=== PATIENT | female | born 1935 | race Caucasian/White ===

== ENCOUNTER → 2016-09-19 | Outpatient (CLI) | payer OTHER, MEDICAID ==
[~2016-09-19] MED LIST: ACET-1757 PO; ALBU1.25 NEB; ALBU8.5H5 INH; AMLO5TAB2 PO; ASPI325T80 PO; AZIT250T PO; CEFD300C37 PO; FURO20TA3 PO; GUAI237S4 PO; LEVO750T26 PO; LISI-170 PO; LOVA40TA2 PO; LOVA40TA65 PO; METO50TA82; METO50TA82 PO; MONT10TA6 PO; OMEP-110 PO
== END | disposition home or self-care (01) ==
LOC: CFH 07:55
PROVIDERS: ATTEND Internal Medicine
DX: J90 Pleural effusion, not elsewhere classified (principal); J98.11 Atelectasis; R91.1 Solitary pulmonary nodule
CPT/HCPCS: 71250

== ENCOUNTER 2016-11-15 09:59 | Day surgery (SDC) | payer OTHER, MEDICAID ==
[2016-11-14 12:12] VITALS: BP 107/63
[2016-11-14 12:41] LABS: BLOOD UREA NITROGEN 18 mg/dL (7-18)
[~2016-11-15] VITALS: Ht 157.5 cm; Wt 81.8 kg
[~2016-11-15 09:59] MED LIST changes: +AMLO10TA2 PO; +APIX5TAB PO; +FLUT1AER PO; +FURO-92 PO; +LISI40TA PO
[2016-11-15] MEDS ORDERED: SODIUM CHLORIDE 0.9% 1,000 ML IV SCH (10:30)
[2016-11-15] MEDS ORDERED: PROPOFOL 10 MG/ML, 20ML ONE (12:33)
== END 2016-11-15 14:00 ==
LOC: CACL 09:59
PROVIDERS: ATTEND Internal Medicine Cardiovascular Disease
DX: I48.91 Unspecified atrial fibrillation (principal); I07.1 Rheumatic tricuspid insufficiency; I34.0 Nonrheumatic mitral (valve) insufficiency; E78.5 Hyperlipidemia, unspecified; J44.9 Chronic obstructive pulmonary disease, unspecified; I10 Essential (primary) hypertension; Z87.891 Personal history of nicotine dependence; Z88.1 Allergy status to other antibiotic agents; Z88.8 Allergy status to other drugs, medicaments and biological substances
CPT/HCPCS: 36415; 80048; 92960; 93005; 93312; 93325; J2704

== ENCOUNTER 2016-12-18 18:52 | Emergency (ER) | payer OTHER, MEDICAID ==
[~2016-12-18] VITALS: Ht 157.5 cm; Wt 84.4 kg
[2016-12-18 20:14] LABS: HEMATOCRIT 32.1 % (34.6-47.8); HEMOGLOBIN 10.6 g/dL (11.7-16.4); WHITE BLOOD COUNT 7.4 x10^3/uL (3.4-10)
[2016-12-18 20:17] LABS: ASPARTATE AMINO TRANSFERASE 16 U/L (15-37); BLOOD UREA NITROGEN 20 mg/dL (7-18)
[2016-12-18 20:23] LABS: IS PT STATUS REG ER OR PRE ER? YES
[2016-12-18] MEDS ORDERED: SOTA80TA PO (20:37)
[2016-12-18 23:39] LABS: CYTOLOGY BODY FLUID RECD INTO PATHOLOGY; CYTOLOGY BODY FLUID SOURCE PLEURAL FLUID
[2016-12-18] MEDS ORDERED: ALBUTEROL/IPRATROPIUM 2.5MG/0.5MG, 3 ML ONE (23:51)
[2016-12-19] MEDS ORDERED: ALBUTEROL SULFATE 2.5 MG/3 ML NPPB ONE
[2016-12-19 01:48] VITALS: BP 123/59
== END 2016-12-19 01:50 | disposition home or self-care (01) ==
LOC: ED 19:46
DX: J90 Pleural effusion, not elsewhere classified (principal); R06.00 Dyspnea, unspecified; I10 Essential (primary) hypertension; E11.9 Type 2 diabetes mellitus without complications; J44.9 Chronic obstructive pulmonary disease, unspecified; K21.9 Gastro-esophageal reflux disease without esophagitis; Z87.891 Personal history of nicotine dependence
CPT/HCPCS: 36415; 71010; 71020; 80053; 82945; 83615; 83880; 84157; 84484; 85025; 85610; 85730; 88112; 88305; 89051; 93005; 94640; 99285; J7613

== ENCOUNTER → 2017-02-07 | Outpatient (CLI) | payer OTHER, MEDICAID ==
[~2017-02-07] MED LIST changes: +DOCU-131 PO; +DOXY100T10 PO; +FERR325T16 PO; +LISI-167 PO; +ONDA4TAB7 PO; +OXYC5TAB3 PO; +SOTA80TA PO
== END | disposition home or self-care (01) ==
LOC: CFH 09:35
PROVIDERS: ATTEND Internal Medicine Cardiovascular Disease
DX: J90 Pleural effusion, not elsewhere classified (principal); I48.91 Unspecified atrial fibrillation; D64.9 Anemia, unspecified; I10 Essential (primary) hypertension; Z90.49 Acquired absence of other specified parts of digestive tract
CPT/HCPCS: 71020

== ENCOUNTER 2017-02-20 05:50 | Day surgery (SDC) | payer OTHER, MEDICAID ==
[~2017-02-20] VITALS: Ht 157.5 cm; Wt 79.9 kg
[~2017-02-20 05:50] MED LIST changes: +FERR324T8 PO
[2017-02-20 06:58] LABS: HEMATOCRIT 25.4 % (34.6-47.8); HEMOGLOBIN 8.1 g/dL (11.7-16.4); WHITE BLOOD COUNT 8.7 x10^3/uL (3.4-10)
[2017-02-20] MEDS ORDERED: LACTATED RINGERS 1,000 ML IV SCH (07:05)
[2017-02-20 07:06] VITALS: BP 91/52
[2017-02-20 08:12] LABS: BLOOD UREA NITROGEN 9 mg/dL (7-18)
[2017-02-20 08:21] LABS: ASPARTATE AMINO TRANSFERASE 16 U/L (15-37); FERRITIN 60.7 ng/mL (8-252); TOTAL IRON BINDING CAPACITY 293 mcg/dL (250-450)
[2017-02-20 09:05] VITALS: BP 84/46
[2017-02-20 09:11] VITALS: BP 88/51
[2017-02-20 11:11] VITALS: BP 92/56
[2017-02-20] MEDS ORDERED: PROPOFOL 10 MG/ML, 50ML ONE (13:09)
[2017-02-20] MEDS ORDERED: PROPOFOL 10 MG/ML, 20ML ONE (13:09)
[2017-02-23 13:52] LABS: ANA SCREEN NEGATIVE (Negative)
== END 2017-02-20 15:10 ==
LOC: OUT 05:50
PROVIDERS: ATTEND Internal Medicine
DX: K62.1 Rectal polyp (principal); J44.9 Chronic obstructive pulmonary disease, unspecified; I10 Essential (primary) hypertension; E78.5 Hyperlipidemia, unspecified; Z85.3 Personal history of malignant neoplasm of breast
CPT/HCPCS: 36415; 44369; 45385; 80053; 82728; 83540; 83550; 84443; 85025; 85045; 86038; 86300; 86850; 86900; 86923; 88305; 93005; J2704; J7120; P9016

== ENCOUNTER 2017-02-22 13:22 | Inpatient (IN) | payer OTHER, MEDICAID ==
[~2017-02-22] VITALS: Ht 157.5 cm; Wt 76.0 kg
[2017-02-22 14:27] LABS: HEMATOCRIT 28.5 % (34.6-47.8); HEMOGLOBIN 9.2 g/dL (11.7-16.4); WHITE BLOOD COUNT 10.6 x10^3/uL (3.4-10)
[2017-02-22 14:35] LABS: BLOOD UREA NITROGEN 17 mg/dL (7-18)
[2017-02-22 15:41] LABS: IS PT STATUS REG ER OR PRE ER? YES
[2017-02-22] MEDS ORDERED: FUROSEMIDE 40 MG/4 ML IV ONE (17:00)
[2017-02-22] MEDS ORDERED: PIPERACILLIN/TAZO/PMX 3.375GM 50 ML IVPB ONE (17:00)
[2017-02-22] MEDS ORDERED: FUROSEMIDE 40 MG/4 ML ONE (17:37)
[2017-02-22] MEDS ORDERED: FUROSEMIDE 20 MG/2 ML IV ONE (18:30)
[2017-02-22] MEDS ORDERED: VANCOMYCIN PER PHARMACY MC PRN (18:30)
[2017-02-22] MEDS ORDERED: VANCOMYCIN PMX 1GM/200ML 200 ML IV ONE (18:30)
[2017-02-22] MEDS: FUROSEMIDE 40 MG/4 ML IV SCH (18:49)
[2017-02-22] MEDS ORDERED: PHARMACOKINETIC MONITORING MC PRN (20:00)
[2017-02-22 20:14] VITALS: BP 126/69
[2017-02-22] MEDS: SOTALOL 80MG TABLET PO SCH (20:46)
[2017-02-22] MEDS: MONTELUKAST 10 MG TABLET PO SCH (20:46)
[2017-02-22] MEDS: PIPERACILLIN/TAZO/PMX 3.375GM 50 ML IV SCH (20:47)
[2017-02-22] MEDS ORDERED: APIXABAN 5 MG TABLET PO SCH (21:00)
[2017-02-22] MEDS: VANCOMYCIN 1,500 MG in SODIUM CHLORIDE 0.9% 250 ML IV SCH (22:39)
[2017-02-23 02:11] VITALS: BP 114/63
[2017-02-23] MEDS: PIPERACILLIN/TAZO/PMX 3.375GM 50 ML IV SCH ×4 (03:13→20:58)
[2017-02-23] MEDS: ALBUTEROL SULFATE 2.5 MG/3 ML NPPB PRN ×2 (03:56→06:49)
[2017-02-23 08:00] VITALS: BP 118/67
[2017-02-23] MEDS: FERROUS GLUCONATE 324 MG TABLET PO SCH ×2 (08:00→17:00)
[2017-02-23] MEDS: FUROSEMIDE 40 MG/4 ML IV SCH ×2 (08:52→17:02)
[2017-02-23] MEDS: LISINOPRIL 10 MG TABLET PO SCH (08:53)
[2017-02-23] MEDS: OMEPRAZOLE 20 MG CAPSULE.DR PO SCH (08:53)
[2017-02-23] MEDS: SOTALOL 80MG TABLET PO SCH ×2 (08:53→20:58)
[2017-02-23] MEDS: ALBUTEROL SULFATE 2.5 MG/3 ML NPPB SCH ×3 (09:00→20:20)
[2017-02-23] MEDS ORDERED: FUROSEMIDE 40 MG TABLET PO SCH (09:00)
[2017-02-23] MEDS: FLUTICASONE/VILANTEROL 100-25MCG/INH INH SCH (11:04)
[2017-02-23 13:48] VITALS: BP 103/59
[2017-02-23 18:31] VITALS: BP 102/58
[2017-02-23] MEDS: MONTELUKAST 10 MG TABLET PO SCH (20:58)
[2017-02-23] MEDS: VANCOMYCIN 1,500 MG in SODIUM CHLORIDE 0.9% 250 ML IV SCH (21:51)
[2017-02-24 01:17] VITALS: BP 123/77
[2017-02-24] MEDS: PIPERACILLIN/TAZO/PMX 3.375GM 50 ML IV SCH ×4 (03:16→21:51)
[2017-02-24 05:29] LABS: HEMATOCRIT 25.5 % (34.6-47.8); HEMOGLOBIN 8.1 g/dL (11.7-16.4)
[2017-02-24 05:39] LABS: BLOOD UREA NITROGEN 15 mg/dL (7-18)
[2017-02-24 07:40] VITALS: BP 116/65
[2017-02-24] MEDS: OMEPRAZOLE 20 MG CAPSULE.DR PO SCH (07:54)
[2017-02-24] MEDS: FERROUS GLUCONATE 324 MG TABLET PO SCH ×2 (07:55→17:00)
[2017-02-24] MEDS: FUROSEMIDE 40 MG/4 ML IV SCH ×2 (07:55→17:09)
[2017-02-24] MEDS: FLUTICASONE/VILANTEROL 100-25MCG/INH INH SCH (09:46)
[2017-02-24] MEDS: LISINOPRIL 10 MG TABLET PO SCH (09:47)
[2017-02-24] MEDS: SOTALOL 80MG TABLET PO SCH ×2 (09:47→21:58)
[2017-02-24] MEDS: ALBUTEROL SULFATE 2.5 MG/3 ML NPPB SCH ×3 (10:39→20:50)
[2017-02-24 13:45] VITALS: BP 98/59
[2017-02-24 19:55] VITALS: BP 106/63
[2017-02-24] MEDS: MONTELUKAST 10 MG TABLET PO SCH (21:57)
[2017-02-24] MEDS: VANCOMYCIN 1,500 MG in SODIUM CHLORIDE 0.9% 250 ML IV SCH (22:52)
[2017-02-25 01:21] VITALS: BP 116/54
[2017-02-25] MEDS: PIPERACILLIN/TAZO/PMX 3.375GM 50 ML IV SCH ×3 (04:00→18:15)
[2017-02-25] MEDS: ALBUTEROL SULFATE 2.5 MG/3 ML NPPB SCH ×4 (06:00→20:21)
[2017-02-25] MEDS: FERROUS GLUCONATE 324 MG TABLET PO SCH ×2 (08:00→17:00)
[2017-02-25 08:38] VITALS: BP 112/54
[2017-02-25] MEDS: FLUTICASONE/VILANTEROL 100-25MCG/INH INH SCH (11:52)
[2017-02-25] MEDS: LISINOPRIL 10 MG TABLET PO SCH (11:52)
[2017-02-25] MEDS: SOTALOL 80MG TABLET PO SCH ×2 (11:52→22:56)
[2017-02-25] MEDS: OMEPRAZOLE 20 MG CAPSULE.DR PO SCH (11:52)
[2017-02-25] MEDS: FUROSEMIDE 40 MG TABLET PO SCH ×2 (13:12→18:15)
[2017-02-25 14:30] VITALS: BP 109/54
[2017-02-25 20:00] VITALS: BP 122/72
[2017-02-25] MEDS: MONTELUKAST 10 MG TABLET PO SCH (22:56)
[2017-02-25] MEDS: VANCOMYCIN 1,700 MG in SODIUM CHLORIDE 0.9% 250 ML IV SCH (22:56)
[2017-02-26 00:29] VITALS: BP 116/69
[2017-02-26] MEDS: PIPERACILLIN/TAZO/PMX 3.375GM 50 ML IV SCH ×4 (00:43→18:47)
[2017-02-26] MEDS: ALBUTEROL SULFATE 2.5 MG/3 ML NPPB SCH ×4 (07:45→19:43)
[2017-02-26] MEDS: FERROUS GLUCONATE 324 MG TABLET PO SCH ×2 (08:00→17:00)
[2017-02-26] MEDS: FUROSEMIDE 40 MG TABLET PO SCH ×2 (08:00→17:00)
[2017-02-26] MEDS ORDERED: CATHFLO-ALTEPLASE 2 MG/2 ML CATHFLUSH ONE (08:30)
[2017-02-26] MEDS: FLUTICASONE/VILANTEROL 100-25MCG/INH INH SCH (09:00)
[2017-02-26 09:53] VITALS: BP 130/57
[2017-02-26] MEDS: SOTALOL 80MG TABLET PO SCH ×2 (10:19→21:20)
[2017-02-26] MEDS: LISINOPRIL 10 MG TABLET PO SCH (10:19)
[2017-02-26] MEDS: OMEPRAZOLE 20 MG CAPSULE.DR PO SCH (10:19)
[2017-02-26] MEDS ORDERED: BISACODYL 10 MG SUPP PR PRN (10:30)
[2017-02-26 14:00] VITALS: BP 128/60
[2017-02-26 15:50] VITALS: BP 134/60
[2017-02-26 18:32] VITALS: BP 128/53
[2017-02-26 21:00] VITALS: BP 116/50
[2017-02-26] MEDS: MONTELUKAST 10 MG TABLET PO SCH (21:19)
[2017-02-26] MEDS: VANCOMYCIN 1,700 MG in SODIUM CHLORIDE 0.9% 250 ML IV SCH (22:45)
[2017-02-27] MEDS: PIPERACILLIN/TAZO/PMX 3.375GM 50 ML IV SCH ×4 (01:06→20:23)
[2017-02-27 03:05] VITALS: BP 100/39
[2017-02-27 06:55] VITALS: BP 144/63
[2017-02-27] MEDS: ALBUTEROL SULFATE 2.5 MG/3 ML NPPB SCH ×4 (07:50→20:15)
[2017-02-27] MEDS: FERROUS GLUCONATE 324 MG TABLET PO SCH ×2 (08:00→17:00)
[2017-02-27] MEDS: FLUTICASONE/VILANTEROL 100-25MCG/INH INH SCH (09:20)
[2017-02-27] MEDS: SOTALOL 80MG TABLET PO SCH ×2 (09:21→20:24)
[2017-02-27] MEDS: OMEPRAZOLE 20 MG CAPSULE.DR PO SCH (09:21)
[2017-02-27] MEDS: FUROSEMIDE 40 MG TABLET PO SCH ×2 (09:21→17:41)
[2017-02-27] MEDS: LISINOPRIL 10 MG TABLET PO SCH (09:21)
[2017-02-27] MEDS ORDERED: ONDANSETRON 2MG/ML, 2ML IVPush PRN (10:30)
[2017-02-27 12:51] VITALS: BP 119/69
[2017-02-27 19:19] VITALS: BP 119/46
[2017-02-27] MEDS: MONTELUKAST 10 MG TABLET PO SCH (20:24)
[2017-02-27] MEDS: VANCOMYCIN 1,700 MG in SODIUM CHLORIDE 0.9% 250 ML IV SCH (22:15)
[2017-02-28 02:30] VITALS: BP 106/48
[2017-02-28] MEDS: PIPERACILLIN/TAZO/PMX 3.375GM 50 ML IV SCH ×3 (02:46→14:30)
[2017-02-28 06:50] VITALS: BP 114/46
[2017-02-28] MEDS: ALBUTEROL SULFATE 2.5 MG/3 ML NPPB SCH ×2 (07:10→11:00)
[2017-02-28] MEDS: FERROUS GLUCONATE 324 MG TABLET PO SCH (08:00)
[2017-02-28] MEDS: OMEPRAZOLE 20 MG CAPSULE.DR PO SCH (08:31)
[2017-02-28] MEDS: SOTALOL 80MG TABLET PO SCH (08:31)
[2017-02-28] MEDS: LISINOPRIL 10 MG TABLET PO SCH (08:31)
[2017-02-28] MEDS: FLUTICASONE/VILANTEROL 100-25MCG/INH INH SCH (08:31)
[2017-02-28] MEDS: FUROSEMIDE 40 MG TABLET PO SCH (08:31)
[2017-02-28] MEDS ORDERED: SIMV20TA PO (11:54)
[2017-02-28] MEDS ORDERED: POTA20PA PO (11:54)
[2017-02-28] MEDS ORDERED: FURO40TA6 PO (11:54)
[2017-02-28 12:22] VITALS: BP 105/55
== END 2017-02-28 14:30 | disposition home or self-care (01) | DRG 291 ==
LOC: ED 14:47 → EDIP 16:58 → 4EST 18:32
PROVIDERS: ADMIT Family Medicine; ATTEND Internal Medicine
DX: I11.0 Hypertensive heart disease with heart failure (principal); I26.09 Other pulmonary embolism with acute cor pulmonale; J91.0 Malignant pleural effusion; J81.1 Chronic pulmonary edema; J96.11 Chronic respiratory failure with hypoxia; I27.20 Pulmonary hypertension, unspecified; J44.0 Chronic obstructive pulmonary disease with (acute) lower respiratory infection; I50.31 Acute diastolic (congestive) heart failure; D50.9 Iron deficiency anemia, unspecified; E11.9 Type 2 diabetes mellitus without complications; Z99.81 Dependence on supplemental oxygen; I48.91 Unspecified atrial fibrillation; E66.9 Obesity, unspecified; I35.8 Other nonrheumatic aortic valve disorders; K21.9 Gastro-esophageal reflux disease without esophagitis; Z68.30 Body mass index [BMI] 30.0-30.9, adult; E78.5 Hyperlipidemia, unspecified; I34.0 Nonrheumatic mitral (valve) insufficiency; T50.2X5A Adverse effect of carbonic-anhydrase inhibitors, benzothiadiazides and other diuretics, initial encounter; K63.5 Polyp of colon; Z66 Do not resuscitate; Z85.3 Personal history of malignant neoplasm of breast; Z87.891 Personal history of nicotine dependence; Z90.13 Acquired absence of bilateral breasts and nipples; Z90.49 Acquired absence of other specified parts of digestive tract; Z88.8 Allergy status to other drugs, medicaments and biological substances
CPT/HCPCS: 36415; 71010; 71250; 80048; 80202; 83605; 83735; 83880; 84100; 84484; 85025; 87040; 93005; 93306; 94640; 96374; J1940; J2405; J2543; J2997; J3370; J7613; J7050

== ENCOUNTER → 2018-01-09 | Outpatient (CLI) | payer OTHER, MEDICAID ==
[~2018-01-09] MED LIST changes: -AMLO10TA2 PO; +AMLO10TA6 PO; -AMLO5TAB2 PO; +AMLO5TAB7 PO; +ASCO-96 PO; +BENZ200C48 PO; +CHOL400C PO; +CYAN250013 PO; +FLUT1AER INH; +FURO40TA6 PO; +LACT1CAP35 PO; +LETR2.5T PO; +LOVA-41 PO; -LOVA40TA65 PO; +POTA20PA31 PO; +SIMV20TA PO
== END | disposition home or self-care (01) ==
LOC: RAD 09:13
PROVIDERS: ATTEND Internal Medicine
DX: J90 Pleural effusion, not elsewhere classified (principal); I31.3 Pericardial effusion (noninflammatory); I25.10 Atherosclerotic heart disease of native coronary artery without angina pectoris; I70.0 Atherosclerosis of aorta; K76.89 Other specified diseases of liver; C50.919 Malignant neoplasm of unspecified site of unspecified female breast; D50.9 Iron deficiency anemia, unspecified
CPT/HCPCS: 71250; 76700

== ENCOUNTER → 2018-01-11 | Outpatient (CLI) | payer OTHER, MEDICAID | END | disposition home or self-care (01) | LOC: PETCFH 11:07 | PROVIDERS: ATTEND Internal Medicine | DX: C50.919 Malignant neoplasm of unspecified site of unspecified female breast (principal); D50.9 Iron deficiency anemia, unspecified | CPT/HCPCS: 78306; A9503 ==

== ENCOUNTER 2018-02-15 11:49 | Emergency (ER) | payer OTHER, MEDICAID ==
[~2018-02-15] VITALS: Ht 157.5 cm; Wt 84.1 kg
[~2018-02-15 11:49] MED LIST changes: +AMLO-150 PO; -AMLO5TAB7 PO
[2018-02-15 12:00] VITALS: BP 123/53
== END 2018-02-15 13:43 | disposition home or self-care (01) ==
LOC: ED 13:09
DX: M79.661 Pain in right lower leg (principal); K21.9 Gastro-esophageal reflux disease without esophagitis; J44.9 Chronic obstructive pulmonary disease, unspecified; E11.9 Type 2 diabetes mellitus without complications; I10 Essential (primary) hypertension
CPT/HCPCS: 99284

== ENCOUNTER → 2018-03-28 | Outpatient (CLI) | payer MEDICARE, MEDICAID | END | disposition home or self-care (01) | LOC: RAD 13:37 | PROVIDERS: ATTEND Internal Medicine | DX: M51.36 Other intervertebral disc degeneration, lumbar region (principal); M48.061 Spinal stenosis, lumbar region without neurogenic claudication; M51.26 Other intervertebral disc displacement, lumbar region | CPT/HCPCS: 72148 ==

== ENCOUNTER 2018-09-25 09:36 | Outpatient (CLI) | payer MEDICARE, MEDICAID ==
[~2018-09-25 09:36] MED LIST changes: -AMLO10TA6 PO; +AMLO10TA8 PO
== END 2018-09-25 23:59 | disposition home or self-care (01) ==
LOC: CFH 09:36
PROVIDERS: ATTEND Licensed Practical Nurse
DX: M85.89 Other specified disorders of bone density and structure, multiple sites (principal); N95.8 Other specified menopausal and perimenopausal disorders
CPT/HCPCS: 77080

== ENCOUNTER 2018-10-24 06:54 | Day surgery (SDC) | payer MEDICAID, MEDICARE ==
[~2018-10-24] VITALS: Ht 156.2 cm; Wt 81.2 kg
[2018-10-24 07:49] VITALS: BP 115/73
== END 2018-10-24 12:35 | disposition home or self-care (01) ==
LOC: OUT 06:54
PROVIDERS: ATTEND Internal Medicine
DX: D64.9 Anemia, unspecified (principal); C18.9 Malignant neoplasm of colon, unspecified; K63.3 Ulcer of intestine; K29.70 Gastritis, unspecified, without bleeding; K55.20 Angiodysplasia of colon without hemorrhage; K64.8 Other hemorrhoids; I48.91 Unspecified atrial fibrillation; I48.92 Unspecified atrial flutter; K44.9 Diaphragmatic hernia without obstruction or gangrene; Z88.8 Allergy status to other drugs, medicaments and biological substances; Z85.3 Personal history of malignant neoplasm of breast
CPT/HCPCS: 44369; 45380; 71260; 74177; 88305; 93005; J2704; J7120; Q9967; 88341; 88342

== ENCOUNTER 2018-11-08 06:43 | Inpatient (IN) | payer MEDICARE, MEDICAID ==
[2018-11-05 12:09] VITALS: BP 107/69
[2018-11-05 12:21] LABS: BASOPHILS # (AUTO) 0.03 x10^3/uL (0-0.1); BASOPHILS % (AUTO) 0 % (0-1); EOSINOPHILS # (AUTO) 0.27 x10^3/uL (0-0.4); EOSINOPHILS % (AUTO) 3 % (1-7); LYMPHOCYTES # (AUTO) 1.11 x10^3/uL (1-3.4); LYMPHOCYTES % (AUTO) 12 % (22-44); MD NO; MEAN CORPUSCULAR HEMOGLOBIN 26.6 pg (27.0-34.8); MEAN CORPUSCULAR HGB CONC 32.1 g/dL (32.4-35.8); MEAN CORPUSCULAR VOLUME 82.9 fL (80-100); MEAN PLATELET VOLUME 8.3 fL (7.4-10.4); MONOCYTES # (AUTO) 1.11 x10^3/uL (0.2-0.8); MONOCYTES % (AUTO) 12 % (2-9); NEUTROPHILS # (AUTO) 6.58 x10^3/uL (1.8-6.8); NEUTROPHILS % (AUTO) 72 % (42-75); PLATELET COUNT 328 x10^3/uL (130-400); RED BLOOD COUNT 4.44 x10^6/uL (3.82-5.3); RED CELL DISTRIBUTION WIDTH 16.2 % (9.6-15.2)
[2018-11-05 12:28] LABS: ALBUMIN 3.5 g/dL (3.4-5.0); ANION GAP 8 mmol/L (5-15); CHLORIDE 109 mmol/L (98-107)
[2018-11-05 12:39] LABS: ALANINE AMINOTRANSFERASE 20 U/L (12-78); ALKALINE PHOSPHATASE 77 U/L (45-117); BILIRUBIN,TOTAL 0.4 mg/dL (0.2-1.0); CALCIUM 8.6 mg/dL (8.5-10.1); CREATININE 1.03 mg/dL (0.55-1.02); TOTAL PROTEIN 6.9 g/dL (6.4-8.2)
[~2018-11-08] VITALS: Ht 157.5 cm; Wt 81.0 kg
[~2018-11-08 06:43] MED LIST changes: +ASCO100019 PO; +ASCO10004 PO; +CHOL500045 PO; +COLE1TAB2 PO; +CYAN50008 PO; +DIPH1TAB6 PO; +FURO-93 PO; +IRON28TA4 PO; +LACT1CAP37 PO; +POTA10TA5 PO; +[UNRECOGNIZED DRUG - OTHER] PO; +[UNRECOGNIZED DRUG - OTHER] PO
[2018-11-08] MEDS ORDERED: BUPIVACAINE/PF 0.5% ONE (06:50)
[2018-11-08] MEDS ORDERED: EPINEPHRINE 1 MG/ML, 1ML ONE (06:50)
[2018-11-08] MEDS ORDERED: LACTATED RINGERS 1,000 ML IV SCH ×2 (07:33→12:30)
[2018-11-08 07:55] VITALS: BP 118/74
[2018-11-08] MEDS ORDERED: FENTANYL PF 250 MCG/5ML ONE (08:23)
[2018-11-08] MEDS ORDERED: PHENYLEPHRINE 10 MG/ML ONE (08:28)
[2018-11-08] MEDS ORDERED: ONDANSETRON ODT 8 MG PO PRN (09:00)
[2018-11-08] MEDS ORDERED: ONDANSETRON 2MG/ML, 2ML IV PRN ×2 (09:00→12:30)
[2018-11-08] MEDS ORDERED: OXYcodone 5 MG/5 ML ORAL.SOL UDC PO PRN (09:00)
[2018-11-08] MEDS ORDERED: PROMETHAZINE 25 MG/ML, 1ML IV PRN (09:00)
[2018-11-08] MEDS ORDERED: FENTANYL PF 100 MCG/2ML IV PRN (09:00)
[2018-11-08] MEDS ORDERED: ACETAMINOPHEN 325 MG TABLET PO PRN (09:00)
[2018-11-08] MEDS ORDERED: HYDROmorphone 2 MG/ML, 1ML IVPush PRN (09:00)
[2018-11-08] MEDS ORDERED: GLYCOPYRROLATE 0.2MG/1ML, 5ML ONE (09:43)
[2018-11-08] MEDS ORDERED: PROPOFOL 10 MG/ML, 20ML ONE (09:43)
[2018-11-08] MEDS ORDERED: SUCCINYLCHOLINE 20 MG/ML, 10ML ONE (09:43)
[2018-11-08] MEDS ORDERED: DEXAMETHASONE 4 MG/ML, 1ML ONE (09:43)
[2018-11-08] MEDS ORDERED: LIDOCAINE-MPF 2% ,5ML ONE (09:43)
[2018-11-08] MEDS ORDERED: ONDANSETRON 2MG/ML, 2ML ONE (09:43)
[2018-11-08] MEDS ORDERED: NEOSTIGMINE 1 MG/ML, 10ML ONE (09:43)
[2018-11-08] MEDS ORDERED: ROCURONIUM 10MG/ML,5ML ONE (09:43)
[2018-11-08] MEDS ORDERED: CEFAZOLIN 1,000 MG ONE (09:43)
[2018-11-08] MEDS ORDERED: SUGAMMADEX 200 MG/2 ML IVPush ONE (09:50)
[2018-11-08] MEDS ORDERED: KETOROLAC 30 MG/1 ML ONE (10:38)
[2018-11-08] MEDS ORDERED: ACETAMINOPHEN 325 MG TABLET ONE (10:39)
[2018-11-08] MEDS ORDERED: OXYcodone 5 MG/5 ML ORAL.SOL UDC ONE (10:39)
[2018-11-08] MEDS ORDERED: FENTANYL PF 100 MCG/2ML ONE (10:57)
[2018-11-08] MEDS ORDERED: KETOROLAC 30 MG/1 ML IVPush ONE (11:00)
[2018-11-08] MEDS ORDERED: DEXAMETHASONE 4 MG/ML, 1ML IVPush PRN (12:30)
[2018-11-08] MEDS ORDERED: CALCIUM CARBONATE 500 MG TAB.CHEW PO PRN (12:30)
[2018-11-08] MEDS ORDERED: OXYcodone IR 5MG TABLET PO PRN (12:30)
[2018-11-08] MEDS ORDERED: TRAZODONE 50MG TABLET PO PRN (12:30)
[2018-11-08] MEDS ORDERED: SCOPOLAMINE PATCH, 1.5MG PATCH.TD72 TD PRN (12:30)
[2018-11-08] MEDS ORDERED: LORazepam 1MG TABLET PO PRN (12:30)
[2018-11-08] MEDS ORDERED: ALBUTEROL SULFATE 2.5 MG/3 ML NPPB PRN (12:30)
[2018-11-08] MEDS ORDERED: DIPHENHYDRAMINE 50 MG/ML, 1ML IVPush PRN (12:30)
[2018-11-08] MEDS ORDERED: MORPHINE SULFATE 4 MG/ML, 1ML IVPush PRN (12:30)
[2018-11-08] MEDS ORDERED: HALOPERIDOL 5 MG/ML IVPush PRN (12:30)
[2018-11-08] MEDS ORDERED: LORazepam 2 MG/ML, 1ML IVPush PRN (12:30)
[2018-11-08] MEDS ORDERED: DIPHENHYDRAMINE 25 MG CAPSULE PO PRN (12:30)
[2018-11-08 12:42] VITALS: BP 139/77
[2018-11-08] MEDS: ACETAMINOPHEN 500 MG TABLET PO SCH ×2 (17:53→23:44)
[2018-11-08] MEDS: KETOROLAC 30 MG/1 ML IVPush SCH ×2 (17:54→23:44)
[2018-11-08 19:22] VITALS: BP 112/66
[2018-11-08] MEDS: MONTELUKAST 10 MG TABLET PO SCH (19:59)
[2018-11-08] MEDS: SOTALOL 80MG TABLET PO SCH (19:59)
[2018-11-09 01:04] VITALS: BP 101/63
[2018-11-09 03:07] LABS: MEAN CORPUSCULAR HEMOGLOBIN 24.8 pg (27.0-34.8); MEAN CORPUSCULAR HGB CONC 30.1 g/dL (32.4-35.8); MEAN CORPUSCULAR VOLUME 82.3 fL (80-100); MEAN PLATELET VOLUME 8.1 fL (7.4-10.4); PLATELET COUNT 247 x10^3/uL (130-400); RED BLOOD COUNT 3.74 x10^6/uL (3.82-5.3); RED CELL DISTRIBUTION WIDTH 16.2 % (9.6-15.2)
[2018-11-09 03:17] LABS: ANION GAP 8 mmol/L (5-15); CALCIUM 8.1 mg/dL (8.5-10.1); CHLORIDE 106 mmol/L (98-107); CREATININE 1.29 mg/dL (0.55-1.02)
[2018-11-09 04:15] LABS: MD YES
[2018-11-09 04:22] LABS: ANISOCYTOSIS 1+; BAND#(MANUAL) 0.65 x10^3/uL; BANDS%(MANUAL) 6 % (0-7); LYMPH#(MANUAL) 1.53 x10^3/uL (1-3.4); LYMPHS% (MANUAL) 14 % (22-44); MONOS#(MANUAL) 0.44 x10^3/uL (0.3-2.7); MONOS% (MANUAL) 4 % (2-9); SEG#(MANUAL) 8.28 x10^3/uL (1.8-6.8); SEGS% (MANUAL) 76 % (42-75)
[2018-11-09 04:23] LABS: <PLATELET ESTIMATE> ADEQUATE; <PLT MORPHOLOGY> NORMAL PLT MORPH
[2018-11-09 04:46] VITALS: BP 103/61
[2018-11-09] MEDS: ACETAMINOPHEN 500 MG TABLET PO SCH ×3 (05:57→18:13)
[2018-11-09] MEDS: KETOROLAC 30 MG/1 ML IVPush SCH (05:57)
[2018-11-09] MEDS ORDERED: ENOXAPARIN 30 MG/0.3 ML SQ SCH (07:00)
[2018-11-09 07:49] VITALS: BP 119/84
[2018-11-09] MEDS ORDERED: ENOXAPARIN 40 MG/0.4 ML SQ SCH (09:00)
[2018-11-09] MEDS: LETROZOLE 2.5 MG TABLET PO SCH (09:00)
[2018-11-09] MEDS: ENOXAPARIN 30 MG/0.3 ML SQ SCH (09:46)
[2018-11-09] MEDS: POTASSIUM CHLORIDE 10 MEQ TABLET.ER PO SCH (09:49)
[2018-11-09] MEDS: SOTALOL 80MG TABLET PO SCH ×2 (09:50→20:57)
[2018-11-09] MEDS: LISINOPRIL 10 MG TABLET PO SCH (09:50)
[2018-11-09] MEDS: FUROSEMIDE 20 MG TABLET PO SCH (09:50)
[2018-11-09 12:47] VITALS: BP 106/66
[2018-11-09 20:11] VITALS: BP 100/65
[2018-11-09] MEDS: MONTELUKAST 10 MG TABLET PO SCH (20:57)
[2018-11-10] MEDS: ACETAMINOPHEN 500 MG TABLET PO SCH ×2 (00:08→06:18)
[2018-11-10 02:16] VITALS: BP 103/65
[2018-11-10 05:23] LABS: BASOPHILS # (AUTO) 0.05 x10^3/uL (0-0.1); BASOPHILS % (AUTO) 1 % (0-1); EOSINOPHILS # (AUTO) 0.28 x10^3/uL (0-0.4); EOSINOPHILS % (AUTO) 3 % (1-7); LYMPHOCYTES # (AUTO) 1.38 x10^3/uL (1-3.4); LYMPHOCYTES % (AUTO) 13 % (22-44); MD NO; MEAN CORPUSCULAR HEMOGLOBIN 26.8 pg (27.0-34.8); MEAN CORPUSCULAR HGB CONC 32.4 g/dL (32.4-35.8); MEAN CORPUSCULAR VOLUME 82.6 fL (80-100); MEAN PLATELET VOLUME 8.4 fL (7.4-10.4); MONOCYTES # (AUTO) 1.19 x10^3/uL (0.2-0.8); MONOCYTES % (AUTO) 11 % (2-9); NEUTROPHILS # (AUTO) 7.91 x10^3/uL (1.8-6.8); NEUTROPHILS % (AUTO) 73 % (42-75); PLATELET COUNT 273 x10^3/uL (130-400); RED CELL DISTRIBUTION WIDTH 15.7 % (9.6-15.2)
[2018-11-10 05:31] LABS: ANION GAP 6 mmol/L (5-15); CALCIUM 8.4 mg/dL (8.5-10.1); CHLORIDE 109 mmol/L (98-107)
[2018-11-10 05:33] LABS: CREATININE 0.88 mg/dL (0.55-1.02)
[2018-11-10] MEDS: LETROZOLE 2.5 MG TABLET PO SCH (07:26)
[2018-11-10 07:34] VITALS: BP 97/62
[2018-11-10] MEDS: FUROSEMIDE 20 MG TABLET PO SCH (07:44)
[2018-11-10] MEDS: LISINOPRIL 10 MG TABLET PO SCH (07:46)
[2018-11-10] MEDS: SOTALOL 80MG TABLET PO SCH (07:46)
[2018-11-10] MEDS: POTASSIUM CHLORIDE 10 MEQ TABLET.ER PO SCH (07:46)
[2018-11-10] MEDS: ENOXAPARIN 30 MG/0.3 ML SQ SCH (09:00)
== END 2018-11-10 11:30 | disposition home or self-care (01) | DRG 330 ==
LOC: ORIP 06:43 → 4NOR 11:29 → DCLOUNGE 11-10 11:20
PROVIDERS: ADMIT Colon & Rectal Surgery; ATTEND Colon & Rectal Surgery
PROC: 0DTF4ZZ Resection of Right Large Intestine, Percutaneous Endoscopic Approach (ICD-10-PCS; principal; 2018-11-08 08:30)
DX: C18.2 Malignant neoplasm of ascending colon (principal); R71.0 Precipitous drop in hematocrit; I48.91 Unspecified atrial fibrillation; I10 Essential (primary) hypertension; E66.9 Obesity, unspecified; E61.1 Iron deficiency; C50.919 Malignant neoplasm of unspecified site of unspecified female breast; Z99.81 Dependence on supplemental oxygen; Z88.8 Allergy status to other drugs, medicaments and biological substances; Z92.21 Personal history of antineoplastic chemotherapy; Z85.3 Personal history of malignant neoplasm of breast; Z79.82 Long term (current) use of aspirin; Z90.10 Acquired absence of unspecified breast and nipple; Z80.9 Family history of malignant neoplasm, unspecified; Z82.49 Family history of ischemic heart disease and other diseases of the circulatory system; Z83.3 Family history of diabetes mellitus; Z87.891 Personal history of nicotine dependence; Z68.32 Body mass index [BMI] 32.0-32.9, adult
CPT/HCPCS: 36415; 80048; 80053; 83735; 85025; 86850; 86900; 88307; 93005; G0378; J0171; J0690; J1100; J1650; J1885; J2405; J2704; J2710; J3010; J0330; J2370; J7120

== ENCOUNTER 2019-04-11 12:01 | Emergency (ER) | payer MEDICARE, MEDICAID ==
[~2019-04-11] VITALS: Ht 154.9 cm; Wt 76.7 kg
[~2019-04-11 12:01] MED LIST changes: -ACET-1757 PO; +ACET-2065 PO; +BRAN1000 PO; -DOXY100T10 PO; +DOXY100T23 PO; +LOPE-114 PO
--- NOTE | 2019-04-11 12:36 | NUR ---
TECHNICAL DESIGNER- CORE PER GUERRERO [place]
[2019-04-11 13:24] LABS: MEAN CORPUSCULAR HEMOGLOBIN 27.6 pg (27.0-34.8); MEAN CORPUSCULAR HGB CONC 32.4 g/dL (32.4-35.8); MEAN PLATELET VOLUME 8.8 fL (7.4-10.4); PLATELET COUNT 242 x10^3/uL (130-400); RED BLOOD COUNT 4.55 x10^6/uL (3.82-5.3); RED CELL DISTRIBUTION WIDTH 18.1 % (9.6-15.2)
[2019-04-11 13:33] LABS: ALBUMIN 3.9 g/dL (3.4-5.0); ANION GAP 5 mmol/L (5-15); CALCIUM 9.1 mg/dL (8.5-10.1); CHLORIDE 106 mmol/L (98-107); CREATININE 0.85 mg/dL (0.55-1.02)
[2019-04-11 13:50] LABS: BASOPHILS # (AUTO) 0.03 x10^3/uL (0-0.1); BASOPHILS % (AUTO) 0 % (0-1); EOSINOPHILS # (AUTO) 0.19 x10^3/uL (0-0.4); EOSINOPHILS % (AUTO) 2 % (1-7); LYMPHOCYTES # (AUTO) 1.77 x10^3/uL (1-3.4); LYMPHOCYTES % (AUTO) 18 % (22-44); MD SCAN; MONOCYTES # (AUTO) 1.46 x10^3/uL (0.2-0.8); MONOCYTES % (AUTO) 14 % (2-9); NEUTROPHILS # (AUTO) 6.67 x10^3/uL (1.8-6.8); NEUTROPHILS % (AUTO) 66 % (42-75)
[2019-04-11 16:20] VITALS: BP 139/64
[2019-04-11] MEDS ORDERED: IBUPROFEN 200 MG TABLET ONE (19:17)
--- NOTE | 2019-04-11 19:20 | NUR ---
pt provided ice pack and motrin, per valorie [place]
[2019-04-11] MEDS ORDERED: IBUPROFEN 200 MG TABLET PO ONE (19:30)
== END 2019-04-11 19:33 | disposition home or self-care (01) ==
LOC: ED 19:25
DX: L03.116 Cellulitis of left lower limb (principal); I10 Essential (primary) hypertension; E11.9 Type 2 diabetes mellitus without complications; K21.9 Gastro-esophageal reflux disease without esophagitis; J44.0 Chronic obstructive pulmonary disease with (acute) lower respiratory infection; Z87.891 Personal history of nicotine dependence
CPT/HCPCS: 36415; 80048; 82040; 85025; 99284

== ENCOUNTER → 2019-04-23 | Outpatient (CLI) | payer MEDICARE, MEDICAID ==
[~2019-04-23] MED LIST changes: -LETR2.5T PO; +LETR2.5T3 PO
== END | disposition home or self-care (01) ==
LOC: CFH 14:34
PROVIDERS: ATTEND Internal Medicine Cardiovascular Disease
DX: I08.3 Combined rheumatic disorders of mitral, aortic and tricuspid valves (principal); I11.0 Hypertensive heart disease with heart failure; I50.33 Acute on chronic diastolic (congestive) heart failure; I48.0 Paroxysmal atrial fibrillation; E11.9 Type 2 diabetes mellitus without complications; J44.9 Chronic obstructive pulmonary disease, unspecified; Z85.038 Personal history of other malignant neoplasm of large intestine; Z85.3 Personal history of malignant neoplasm of breast
CPT/HCPCS: 93306

== ENCOUNTER → 2019-05-01 | Outpatient (CLI) | payer MEDICARE, MEDICAID | END | disposition home or self-care (01) | LOC: CVU 10:25 | PROVIDERS: ATTEND Nurse Practitioner Family | DX: J44.9 Chronic obstructive pulmonary disease, unspecified (principal); I70.8 Atherosclerosis of other arteries; I11.9 Hypertensive heart disease without heart failure; R10.31 Right lower quadrant pain; I48.91 Unspecified atrial fibrillation; Z85.118 Personal history of other malignant neoplasm of bronchus and lung | CPT/HCPCS: 71046; 93922; 93926 ==

== ENCOUNTER 2019-05-21 13:24 | Outpatient (CLI) | payer MEDICARE, MEDICAID | END 2019-05-21 23:59 | disposition home or self-care (01) | LOC: CVU 13:24 | PROVIDERS: ATTEND Nurse Practitioner Family | DX: I83.891 Varicose veins of right lower extremity with other complications (principal); R09.89 Other specified symptoms and signs involving the circulatory and respiratory systems; R06.9 Unspecified abnormalities of breathing | CPT/HCPCS: 93971 ==

== ENCOUNTER 2019-09-18 07:11 | Observation (INO) | payer MEDICARE, MEDICAID ==
[2019-09-17 11:41] LABS: BASOPHILS # (AUTO) 0.02 x10^3/uL (0-0.1); BASOPHILS % (AUTO) 0 % (0-1); EOSINOPHILS # (AUTO) 0.23 x10^3/uL (0-0.4); EOSINOPHILS % (AUTO) 3 % (1-7); LYMPHOCYTES # (AUTO) 1.22 x10^3/uL (1-3.4); LYMPHOCYTES % (AUTO) 15 % (22-44); MD NO; MEAN CORPUSCULAR HEMOGLOBIN 28.1 pg (27.0-34.8); MEAN CORPUSCULAR HGB CONC 32.3 g/dL (32.4-35.8); MEAN PLATELET VOLUME 8.7 fL (7.4-10.4); MONOCYTES # (AUTO) 1.02 x10^3/uL (0.2-0.8); MONOCYTES % (AUTO) 13 % (2-9); NEUTROPHILS # (AUTO) 5.71 x10^3/uL (1.8-6.8); NEUTROPHILS % (AUTO) 70 % (42-75); PLATELET COUNT 227 x10^3/uL (130-400); RED BLOOD COUNT 4.65 x10^6/uL (3.82-5.3); RED CELL DISTRIBUTION WIDTH 14.9 % (9.6-15.2)
[2019-09-17 11:51] LABS: ANION GAP 3 mmol/L (5-15); CALCIUM 9.3 mg/dL (8.5-10.1); CHLORIDE 108 mmol/L (98-107); CREATININE 0.87 mg/dL (0.55-1.02)
[~2019-09-18] VITALS: Ht 156.2 cm; Wt 76.5 kg
[~2019-09-18 07:11] MED LIST changes: +CIDE600C PO; +TURM500C4 PO
[2019-09-18] MEDS ORDERED: SODIUM CHLORIDE 0.9% 1,000 ML IV SCH (07:35)
[2019-09-18] MEDS ORDERED: FENTANYL PF 100 MCG/2ML ONE ×2 (08:01→08:55)
[2019-09-18] MEDS ORDERED: LIDOCAINE 2%, 20ML ONE (08:01)
[2019-09-18] MEDS ORDERED: MIDAZOLAM 1 MG/ML, 5ML ONE (08:01)
[2019-09-18] MEDS ORDERED: VANCOMYCIN 500 MG ONE (08:08)
[2019-09-18] MEDS ORDERED: VANCOMYCIN PMX 1GM/200ML 200 ML ONE (08:08)
[2019-09-18] MEDS ORDERED: HOLD MEDICATION MC PRN (09:30)
[2019-09-18] MEDS ORDERED: HYDROcodone/APAP 5/325 TABLET PO PRN (09:30)
[2019-09-18] MEDS ORDERED: ZOLPIDEM 5MG TABLET PO PRN (09:30)
[2019-09-18] MEDS ORDERED: ONDANSETRON 2MG/ML, 2ML IV PRN (09:30)
[2019-09-18] MEDS: ACETAMINOPHEN 325 MG TABLET PO PRN (14:13)
[2019-09-18 14:19] VITALS: BP 122/70
[2019-09-18] MEDS: SOTALOL 120MG TABLET PO SCH (18:04)
[2019-09-18] MEDS: FUROSEMIDE 20 MG TABLET PO SCH (20:47)
[2019-09-18 20:48] VITALS: BP 108/66
[2019-09-18] MEDS: SODIUM CHLORIDE FLUSH 10ML SYR IVF SCH (20:52)
[2019-09-18] MEDS ORDERED: LETROZOLE 2.5 MG TABLET PO SCH (21:00)
[2019-09-18] MEDS ORDERED: MONTELUKAST 10 MG TABLET PO SCH (21:00)
[2019-09-18] MEDS ORDERED: SOTALOL 80MG TABLET PO SCH (21:00)
[2019-09-19 02:59] VITALS: BP 128/78
[2019-09-19] MEDS: SOTALOL 120MG TABLET PO SCH (06:11)
[2019-09-19 07:16] VITALS: BP 137/78
[2019-09-19] MEDS: SODIUM CHLORIDE FLUSH 10ML SYR IVF SCH (08:51)
[2019-09-19] MEDS: FUROSEMIDE 20 MG TABLET PO SCH (08:51)
[2019-09-19] MEDS: ACETAMINOPHEN 325 MG TABLET PO PRN (08:58)
[2019-09-19] MEDS ORDERED: LISINOPRIL 10 MG TABLET PO SCH (09:00)
[2019-09-19] MEDS ORDERED: SOTA80TA PO (10:02)
== END 2019-09-19 12:33 | disposition home or self-care (01) ==
LOC: OUT 07:11 → 5SO 09:13 → INTOOBSV 09:13 → 5SO 09:29 → OUT 09:50 → DCLOUNGE 09-19 12:12
PROVIDERS: ADMIT Internal Medicine Clinical Cardiac Electrophysiology; ATTEND Internal Medicine Clinical Cardiac Electrophysiology
DX: I48.0 Paroxysmal atrial fibrillation (principal); I10 Essential (primary) hypertension; R09.89 Other specified symptoms and signs involving the circulatory and respiratory systems; M79.604 Pain in right leg; Z79.899 Other long term (current) drug therapy
CPT/HCPCS: 33208; 36415; 71045; 71046; 80048; 85025; 93005; 99156; 99157; C1769; C1779; C1785; C1892; C1894; G0378; J2250; J3010; J3370; J3490

== ENCOUNTER 2019-10-27 01:23 | Emergency (ER) | payer MEDICARE, MEDICAID ==
[~2019-10-27] VITALS: Ht 157.5 cm; Wt 77.0 kg
--- NOTE | 2019-10-27 01:43 | NUR ---
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 PT STATES THEY HAVENT DONE SURGERY BECAUSE THEY NEED TO "FIX SOME OTHER THINGS FIRST." PT C/O SHOOTING PAIN ACROSS LEFT FOOT TONIGHT AND PT STATES THAT RECENTLY (OVER THE PAST WEEK) PT HAS HAD NUMBESS AND TINGLING OF LOWER EXTREMITIES, IN PARTICULARLY HER FEET. STATES THE PAIN IS 7/10 AND SHOOTS UP HER LEGS MAKING WALKING DIFFICULT. PT NAD, PULSES PRESENT, WEAKER ON THE RIGHT SIDE. CALL LIGHT ON LAP. DAUGHTER AT BS PT PLACED ON SPO2/BP MONITORING GIO WOODS AT BS FOR EVAL AND POC
[2019-10-27] MEDS ORDERED: OXYcodone/APAP 5/325MG TABLET PO ONE (02:00)
[2019-10-27] MEDS ORDERED: LORazepam 1MG TABLET PO ONE (02:00)
[2019-10-27] MEDS ORDERED: APIX5TAB PO (02:12)
[2019-10-27] MEDS ORDERED: LORazepam 1MG TABLET ONE (02:15)
[2019-10-27 02:19] LABS: BASOPHILS # (AUTO) 0.03 x10^3/uL (0-0.1); BASOPHILS % (AUTO) 0 % (0-1); EOSINOPHILS % (AUTO) 2 % (1-7); LYMPHOCYTES % (AUTO) 12 % (22-44); MD NO; MEAN CORPUSCULAR HEMOGLOBIN 28.3 pg (27.0-34.8); MEAN CORPUSCULAR HGB CONC 32.4 g/dL (32.4-35.8); MEAN CORPUSCULAR VOLUME 87.3 fL (80-100); MEAN PLATELET VOLUME 8.6 fL (7.4-10.4); MONOCYTES # (AUTO) 1.03 x10^3/uL (0.2-0.8); MONOCYTES % (AUTO) 11 % (2-9); NEUTROPHILS # (AUTO) 6.88 x10^3/uL (1.8-6.8); NEUTROPHILS % (AUTO) 74 % (42-75); PLATELET COUNT 232 x10^3/uL (130-400); RED BLOOD COUNT 4.49 x10^6/uL (3.82-5.3); RED CELL DISTRIBUTION WIDTH 16.4 % (9.6-15.2)
[2019-10-27 02:28] LABS: ALANINE AMINOTRANSFERASE 24 U/L (12-78); ALBUMIN 3.8 g/dL (3.4-5.0); ANION GAP 9 mmol/L (5-15); CALCIUM 8.7 mg/dL (8.5-10.1); CHLORIDE 109 mmol/L (98-107); CREATININE 0.98 mg/dL (0.55-1.02)
[2019-10-27 02:31] LABS: ALKALINE PHOSPHATASE 93 U/L (45-117); BILIRUBIN,TOTAL 0.7 mg/dL (0.2-1.0)
--- NOTE | 2019-10-27 02:45 | NUR ---
PT RESTING IN GURNEY APPEARS COMFORTABLE, NAD, NO ACUTE CHANGE IN CONDITION, DAUGHTER AT BS. WAITING FOR ADDITIONAL TEST RESULTS. WCTM.
[2019-10-27 03:02] VITALS: BP 124/50
--- NOTE | 2019-10-27 03:03 | NUR ---
PT RESTING ON GURNEY, NAD, APPEARS COMFORTABLE, LIGHTS DIMMED FOR COMFORT, EYES CLOSED, EVEN AND UNLABORED RESPIRATIONS. WCTM. WAITING FOR ADDITIONAL TEST RESULTS.
--- NOTE | 2019-10-27 03:52 | NUR ---
Patient/DAUGHTER given discharge instructions and they have confirmed that they understand the instructions. Patient ambulatory with steady gait. DECIDED TO USE WHEELCHAIR FOR HALF DISTANCE TO THE DOOR PATIENT DID NOT WANT TO WALK FAR. PT NAD, P/W/D, VSS. DENIES ADDITIONAL NEEDS OR QUESTIONS AT THIS TIME. NO PT BELONGINGS LEFT IN ROOM AFTER DC.
== END 2019-10-27 04:12 | disposition home or self-care (01) ==
LOC: ED 03:30
DX: I70.201 Unspecified atherosclerosis of native arteries of extremities, right leg (principal); R94.31 Abnormal electrocardiogram [ECG] [EKG]; J44.9 Chronic obstructive pulmonary disease, unspecified; K21.9 Gastro-esophageal reflux disease without esophagitis; I10 Essential (primary) hypertension; E11.9 Type 2 diabetes mellitus without complications; Z87.891 Personal history of nicotine dependence; Z95.0 Presence of cardiac pacemaker
CPT/HCPCS: 36415; 80053; 85025; 93005; 99284

== ENCOUNTER 2020-02-03 06:24 | Observation (INO) | payer MEDICARE, MEDICAID ==
[~2020-02-03] VITALS: Ht 156.2 cm; Wt 80.6 kg
[~2020-02-03 06:24] MED LIST changes: +ALLO100T30 PO; +AMLO-211 PO; -AMLO10TA8 PO; +ASCO100018 PO; -ASCO10004 PO; +COLC0.6C3 PO; +METO25TA35 PO; +PRED10TA PO; +SOTA120T26 PO; +TRAM50TA2 PO
[2020-02-03 06:48] VITALS: BP 125/64
[2020-02-03] MEDS ORDERED: MULT-658 PO (07:00)
[2020-02-03] MEDS ORDERED: SODIUM CHLORIDE 0.9% 1,000 ML IV SCH (07:00)
[2020-02-03 07:23] LABS: BASOPHILS % (AUTO) 1 % (0-1); EOSINOPHILS % (AUTO) 3 % (1-7); LYMPHOCYTES % (AUTO) 14 % (22-44); MEAN CORPUSCULAR HEMOGLOBIN 26.1 pg (27.0-34.8); MEAN CORPUSCULAR HGB CONC 31.5 g/dL (32.4-35.8); MEAN PLATELET VOLUME 8.1 fL (7.4-10.4); MONOCYTES % (AUTO) 12 % (2-9); NEUTROPHILS % (AUTO) 70 % (42-75); PLATELET COUNT 285 x10^3/uL (130-400); RED BLOOD COUNT 3.55 x10^6/uL (3.82-5.3); RED CELL DISTRIBUTION WIDTH 17.1 % (9.6-15.2)
[2020-02-03 07:29] LABS: ANION GAP 6 mmol/L (5-15); CALCIUM 8.9 mg/dL (8.5-10.1); CHLORIDE 110 mmol/L (98-107); CREATININE 0.93 mg/dL (0.55-1.02)
[2020-02-03 07:31] LABS: MD NO
[2020-02-03 07:35] LABS: INTERNATIONAL NORMALIZED RATIO 0.98 (0.93-1.1); PROTHROMBIN TIME 10.4 Seconds (9.6-11.5)
[2020-02-03] MEDS ORDERED: MIDAZOLAM 1 MG/ML, 5ML ONE (08:21)
[2020-02-03] MEDS ORDERED: LIDOCAINE 2%, 20ML ONE (08:21)
[2020-02-03] MEDS ORDERED: FENTANYL PF 100 MCG/2ML ONE (08:21)
[2020-02-03 10:24] VITALS: BP 119/75
[2020-02-03 12:18] VITALS: BP 119/70
[2020-02-03 20:48] VITALS: BP 125/75
[2020-02-03] MEDS: APIXABAN 5 MG TABLET PO SCH (20:50)
[2020-02-03] MEDS ORDERED: LETROZOLE 2.5 MG TABLET PO SCH (21:00)
[2020-02-03] MEDS ORDERED: ALLOPURINOL 100 MG TABLET PO SCH (21:00)
[2020-02-03] MEDS ORDERED: MONTELUKAST 10 MG TABLET PO SCH (21:00)
[2020-02-03] MEDS ORDERED: LOPERAMIDE 1 MG/7.5 ML LIQUID PO SCH (21:00)
[2020-02-04 03:21] VITALS: BP 118/77
[2020-02-04 07:19] VITALS: BP 114/69
[2020-02-04] MEDS ORDERED: POTASSIUM CHLORIDE 10 MEQ TABLET.ER PO SCH (09:00)
[2020-02-04] MEDS ORDERED: CHOLECALCIFEROL 5,000u TAB PO SCH (09:00)
[2020-02-04] MEDS ORDERED: MULTIVITAMIN 1 TABLET PO SCH (09:00)
[2020-02-04] MEDS ORDERED: LOPERAMIDE 1 MG/7.5 ML LIQUID PO SCH (09:00)
[2020-02-04] MEDS ORDERED: LISINOPRIL 10 MG TABLET PO SCH (09:00)
[2020-02-04] MEDS ORDERED: FUROSEMIDE 20 MG TABLET PO SCH (09:00)
[2020-02-04] MEDS: APIXABAN 5 MG TABLET PO SCH (10:12)
[2020-02-04 12:23] VITALS: BP 103/64
== END 2020-02-04 13:30 | disposition home or self-care (01) ==
LOC: CACL 06:24 → ORIP 09:01 → 5SO 10:08 → DCLOUNGE 02-04 13:25
PROVIDERS: ADMIT Internal Medicine Cardiovascular Disease; ATTEND Internal Medicine Cardiovascular Disease
DX: I48.91 Unspecified atrial fibrillation (principal); I44.2 Atrioventricular block, complete; I10 Essential (primary) hypertension; Z79.899 Other long term (current) drug therapy
CPT/HCPCS: 36415; 71046; 80048; 85025; 85610; 93650; 99156; C1894; C2630; G0378; J2250; J3010; J3490

== ENCOUNTER 2020-03-30 15:35 | Inpatient (IN) | payer MEDICARE, MEDICAID, OTHER ==
[~2020-03-30] VITALS: Ht 156.2 cm; Wt 77.2 kg
[~2020-03-30 15:35] MED LIST changes: +IRON15TA3 PO; +MULT-658 PO; +PRED1TAB19 PO
[2020-03-30] MEDS ORDERED: ALLO100T30 PO (16:14)
--- NOTE | 2020-03-30 16:51 | NUR ---
Pt reports having SOB for the past week. Patient had a AV node Ablation on January,. February has 2 units of blood for a H&H of 8.5 and iron infusions were started. Had a pacemaker put in in September. Taken off eliquis 3 weeks ago for long HX of GI bleeds for 3-4 years. O2 at night because of her lung cancer, pt on 2.5 L nc at night for years. Pt has left lower lobe removed after her breast cancer metastasized to her lungs. 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 20g IV started in right AC, blood walked to lab. Pt's daughter in room. Went over plan of care from order list, agrees to plan of care. Warm blanket given.
[2020-03-30 16:58] LABS: BASOPHILS % (AUTO) 1 % (0-1); EOSINOPHILS % (AUTO) 2 % (1-7); LYMPHOCYTES % (AUTO) 11 % (22-44); MEAN CORPUSCULAR HEMOGLOBIN 26.1 pg (27.0-34.8); MEAN CORPUSCULAR HGB CONC 31.9 g/dL (32.4-35.8); MONOCYTES % (AUTO) 13 % (2-9); NEUTROPHILS % (AUTO) 73 % (42-75); PLATELET COUNT 243 x10^3/uL (130-400); RED BLOOD COUNT 3.87 x10^6/uL (3.82-5.3); RED CELL DISTRIBUTION WIDTH 17.9 % (9.6-15.2)
[2020-03-30 17:00] LABS: MD NO
[2020-03-30] MEDS ORDERED: SODIUM CHLORIDE FLUSH 10ML SYR IVF ONE (17:00)
[2020-03-30 17:12] LABS: ALBUMIN 3.3 g/dL (3.4-5.0); ANION GAP 7 mmol/L (5-15); CALCIUM 8.8 mg/dL (8.5-10.1); CHLORIDE 106 mmol/L (98-107); D-DIMER 1.08 ug/mlFEU (0.00-0.52); INTERNATIONAL NORMALIZED RATIO 1.01 (0.93-1.1); PROTHROMBIN TIME 10.7 Seconds (9.6-11.5)
[2020-03-30 17:17] LABS: CREATININE 1.58 mg/dL (0.55-1.02); TROPONIN I < 0.015 ng/mL (0.000-0.045)
--- NOTE | 2020-03-30 18:17 | NUR ---
Pt ambulated to restroom with steady gait. Pt SOB RR 45. MD Torrez at bedside.
[2020-03-30] MEDS ORDERED: methylPREDNISolone SOD SUCC 125 MG/2 ML IVPush ONE (18:30)
[2020-03-30] MEDS ORDERED: DIPHENHYDRAMINE 50 MG/ML, 1ML IVPush ONE (18:30)
[2020-03-30] MEDS ORDERED: DIPHENHYDRAMINE 50 MG/ML, 1ML ONE (18:45)
[2020-03-30] MEDS ORDERED: methylPREDNISolone SOD SUCC 125 MG/2 ML ONE (18:45)
--- NOTE | 2020-03-30 18:59 | NUR ---
REPORT FROM JAYJAY SY, PT CARE TRASNFERRED AT THIS TIME.
--- NOTE | 2020-03-30 19:48 | NUR ---
PT RESTING ON BETTINA, NAD, NO CHANGES IN CONDITION, DAUGHTER AT , WCTM. WAITING FOR CT.
--- NOTE | 2020-03-30 20:11 | NUR ---
PT IN CT AT THIS TIME, NAD.
[2020-03-30] MEDS ORDERED: OMNIPAQUE 350 MG/ML, 100ML BOTTLE ONE (20:24)
[2020-03-30] MEDS ORDERED: LOPERAMIDE 1 MG/7.5 ML LIQUID PO PRN (20:30)
[2020-03-30] MEDS ORDERED: POLYETHYLENE GLYCOL 17 GM PACKET PO PRN (20:30)
[2020-03-30] MEDS ORDERED: BISACODYL 10 MG SUPP PR PRN (20:30)
[2020-03-30] MEDS ORDERED: ONDANSETRON ODT 4 MG PO PRN (20:30)
[2020-03-30] MEDS ORDERED: ACETAMINOPHEN 325 MG TABLET PO PRN (20:30)
--- NOTE | 2020-03-30 20:39 | NUR ---
PT BACK TO ROOM, RESTING ON BETTINA, [place], APPEARS COMFORTABLE, DAUGHTER AT BS, DENIES ADDITIONAL NEEDS AT THIS TIME. WCTM. WAITING FOR CT READ
[2020-03-30] MEDS: SODIUM CHLORIDE FLUSH 10ML SYR IVF SCH (21:00)
--- NOTE | 2020-03-30 21:08 | NUR ---
PT RESTING ON GURNEY, NAD, APPEARS COMFORTABLE, PROVIDED PUDDING AND WATER FOR COMFORT, WAITING ON ADMIT BED, WCTM.
[2020-03-30] MEDS: LETROZOLE 2.5 MG TABLET PO SCH (21:46)
[2020-03-30] MEDS: MONTELUKAST 10 MG TABLET PO SCH (21:46)
--- NOTE | 2020-03-30 22:16 | NUR ---
PT PROVIDED SANDWICH FOR COMFORT, NAD, RESTING ON GURNEY, HOSPITAL BED ORDERED, DENIES ADDITIONAL NEEDS AT THIS TIME. BED IN LOWEST, CALL LIGHT ON LAP, RAILS ARE IN PLACE, WCTM. WAITING FOR ADMIT BED.
--- NOTE | 2020-03-30 23:15 | NUR ---
PT MOVED TO HOSPITAL BED, AMBULATED TO RESTROOM WITH A SMOOTH AND STEADY GAIT, RESTING ON HOSPITAL BED, NAD, DENIES ADDITIONAL NEEDS, BED IN LOWEST, RAILS ENGAGED, CALL LIGHT ON LAP, WCTM. WAITING FOR ADMIT BED.
[2020-03-30] MEDS ORDERED: FUROSEMIDE 40 MG/4 ML IV ONE (23:30)
[2020-03-30] MEDS ORDERED: FUROSEMIDE 40 MG/4 ML ONE (23:33)
--- NOTE | 2020-03-31 00:35 | NUR ---
PT PROVIDED DENTURE CUP, RESTING ON HOSPITAL BED, NAD, DENIES ADDITIONAL NEEDS, BED IN LOWEST, RAILS ENGAGED, CALL LIGHT ON LAP, WCTM. WAITING FOR ADMIT BED.
--- NOTE | 2020-03-31 01:15 | NUR ---
LATE ENTRY D/T PT CARE: PT RESTING ON HOSPITAL BED, NAD, EYES CLOSED, EVEN AND UNLABORED RESPIRATIONS, APPEARS COMFORTABLE, BED IN LOWEST, RAILS ENGAGED, CALL LIGHT ON LAP, WCTM. WAITING FOR ADMIT BED
--- NOTE | 2020-03-31 02:10 | NUR ---
LATE ENTRY D/T PT CARE: PT AMBULATED TO RESTROOM WITH A SMOOTH AND STEADY GAIT THEN BACK TO HOSPITAL BED, NAD, APPEARS COMFORTABLE, DENIES ADDITIONAL NEEDS, BED IN LOWEST, RAILS ENGAGED, CALL LIGHT ON LAP, WCTM. WAITING FOR ADMIT BED
--- NOTE | 2020-03-31 03:02 | NUR ---
PT RESTING ON HOSPITAL BED, NAD, EYES CLOSED, EVEN AND UNLABORED RESPIRATIONS, APPEARS COMFORTABLE, BED IN LOWEST, RAILS ENGAGED, CALL LIGHT ON LAP, WCTM. WAITING FOR ADMIT BED
--- NOTE | 2020-03-31 04:39 | NUR ---
PT RESTING ON HOSPITAL BED, EYES CLOSED, EVEN AND UNLABORED RESPIRATIONS, NAD, VSS, WCTM. WAITING FOR ADMIT BED.
[2020-03-31 05:02] LABS: BASOPHILS % (AUTO) 1 % (0-1); EOSINOPHILS % (AUTO) 0 % (1-7); LYMPHOCYTES % (AUTO) 8 % (22-44); MEAN CORPUSCULAR HEMOGLOBIN 26.2 pg (27.0-34.8); MEAN CORPUSCULAR HGB CONC 32.7 g/dL (32.4-35.8); MEAN PLATELET VOLUME 8.3 fL (7.4-10.4); MONOCYTES % (AUTO) 3 % (2-9); NEUTROPHILS % (AUTO) 89 % (42-75); PLATELET COUNT 253 x10^3/uL (130-400); RED BLOOD COUNT 4.11 x10^6/uL (3.82-5.3); RED CELL DISTRIBUTION WIDTH 17.4 % (9.6-15.2)
[2020-03-31 05:08] LABS: MD NO
[2020-03-31 05:09] LABS: ANION GAP 7 mmol/L (5-15); CALCIUM 8.8 mg/dL (8.5-10.1); CHLORIDE 108 mmol/L (98-107); CREATININE 1.25 mg/dL (0.55-1.02)
[2020-03-31 05:13] LABS: TROPONIN I < 0.015 ng/mL (0.000-0.045)
--- NOTE | 2020-03-31 05:40 | NUR ---
late entry d/t pt care: pt resting on hospital bed, nad, appears comfortable, no change in condition, wctm. waiting for admit bed.
--- NOTE | 2020-03-31 06:40 | NUR ---
pt resting on hospital bed, nad, appears comfortable, no change in condition, wctm. waiting for admit bed.
--- NOTE | 2020-03-31 07:02 | NUR ---
BEDSIDE REPORT TO SHADIA SY, PT CARE TRANSFERRED AT THIS TIME.
--- NOTE | 2020-03-31 07:15 | NUR ---
Pt sleeping, visible chest rise and fall. Connected to all monitoring. VSS.
--- NOTE | 2020-03-31 07:48 | NUR ---
Pt ambulatory to bathroom, steady gait.
[2020-03-31] MEDS ORDERED: FUROSEMIDE 20 MG/2 ML ONE (07:59)
[2020-03-31] MEDS: FUROSEMIDE 20 MG/2 ML IV SCH ×2 (08:11→17:23)
[2020-03-31] MEDS ORDERED: FUROSEMIDE 20 MG TABLET PO SCH (09:00)
[2020-03-31] MEDS ORDERED: ASCORBIC ACID 500 MG TABLET ONE (09:02)
[2020-03-31] MEDS ORDERED: LISINOPRIL 10 MG TABLET ONE (09:03)
[2020-03-31] MEDS: LISINOPRIL 10 MG TABLET PO SCH (09:08)
[2020-03-31] MEDS: ASCORBIC ACID 500 MG TABLET PO SCH (09:09)
[2020-03-31] MEDS: FERROUS SULFATE 325 MG TABLET PO SCH (09:10)
[2020-03-31] MEDS: POTASSIUM CHLORIDE 10 MEQ TABLET.ER PO SCH (09:11)
[2020-03-31] MEDS: ALLOPURINOL 100 MG TABLET PO SCH (09:11)
[2020-03-31] MEDS: CALCIUM POLYCARBOPHIL 625 MG TABLET PO SCH (09:11)
[2020-03-31] MEDS: CYANOCOBALAMIN 1,000 MCG TABLET PO SCH (09:11)
[2020-03-31] MEDS: MULTIVITAMIN 1 TABLET PO SCH (09:11)
[2020-03-31] MEDS ORDERED: CHOLECALCIFEROL 5,000u TAB ONE (09:13)
[2020-03-31] MEDS: CHOLECALCIFEROL 5,000u TAB PO SCH (09:14)
--- NOTE | 2020-03-31 11:04 | NUR ---
Output volume is estimated based on the fact that pt has voided twice.
--- NOTE | 2020-03-31 11:06 | NUR ---
Note ghanshyamdebra in ED - 03/31/20 at 1109 by GUILLAUME Double PNA diagnosed at [facility] from which she AMA'd x1week ago. Living in [facility] that was repoed and the tow-truck called 911 when she became anxious and complained of CP/ SOB.
--- NOTE | 2020-03-31 11:09 | NUR ---
Charted on wrong pt.
--- NOTE | 2020-03-31 11:59 | NUR ---
[facility] at bedside. Pt to have echocardiagram today and stress test tomorrow. Pt will be NPO at midnight for stress test, no caffine today or tomorrow.
--- NOTE | 2020-03-31 12:23 | NUR ---
Report to KERRIE Lewis. Pt sitting up in bed, HENRY.
--- NOTE | 2020-03-31 12:53 | NUR ---
UOB WITHOUT ASSITANCE TO BATHROOM. NO SOB OR CP WITH AMBULATING. REPORT TO ESTEVAN SY. PT TO BE TRANSPORTED TO FLOOR
[2020-03-31 13:43] VITALS: BP 121/64
[2020-03-31] MEDS: SODIUM CHLORIDE FLUSH 10ML SYR IVF SCH ×2 (14:20→21:55)
[2020-03-31 18:57] VITALS: BP 129/66
[2020-03-31] MEDS: MONTELUKAST 10 MG TABLET PO SCH (21:55)
[2020-03-31] MEDS: LETROZOLE 2.5 MG TABLET PO SCH (21:57)
[2020-03-31] MEDS ORDERED: DIPHENHYDRAMINE 50 MG/ML, 1ML IVPush ONE (23:00)
[2020-04-01 04:55] VITALS: BP 125/70
[2020-04-01 06:38] VITALS: BP 128/71
[2020-04-01] MEDS: CALCIUM POLYCARBOPHIL 625 MG TABLET PO SCH (11:04)
[2020-04-01] MEDS: POTASSIUM CHLORIDE 10 MEQ TABLET.ER PO SCH (11:04)
[2020-04-01] MEDS: MULTIVITAMIN 1 TABLET PO SCH (11:04)
[2020-04-01] MEDS: LISINOPRIL 10 MG TABLET PO SCH (11:05)
[2020-04-01] MEDS: ALLOPURINOL 100 MG TABLET PO SCH (11:05)
[2020-04-01] MEDS: FERROUS SULFATE 325 MG TABLET PO SCH (11:05)
[2020-04-01] MEDS: CHOLECALCIFEROL 5,000u TAB PO SCH (11:05)
[2020-04-01] MEDS: SODIUM CHLORIDE FLUSH 10ML SYR IVF SCH (11:06)
[2020-04-01] MEDS: CYANOCOBALAMIN 1,000 MCG TABLET PO SCH (11:06)
[2020-04-01] MEDS: ASCORBIC ACID 500 MG TABLET PO SCH (11:06)
[2020-04-01] MEDS: FUROSEMIDE 20 MG/2 ML IV SCH (11:06)
[2020-04-01 12:51] VITALS: BP 124/64
[2020-04-01] MEDS ORDERED: CARV3.1212 PO (14:27)
[2020-04-01] MEDS ORDERED: CARVEDILOL 3.125 MG TABLET PO SCH (18:00)
== END 2020-04-01 16:38 | disposition home or self-care (01) | DRG 291 ==
LOC: ED 19:55 → EDIP 20:35 → 4WST 03-31 13:41 → DCLOUNGE 04-01 16:16
PROVIDERS: ADMIT Internal Medicine; ATTEND Internal Medicine
DX: I11.0 Hypertensive heart disease with heart failure (principal); J96.01 Acute respiratory failure with hypoxia; I48.20 Chronic atrial fibrillation, unspecified; D68.69 Other thrombophilia; C78.00 Secondary malignant neoplasm of unspecified lung; C18.9 Malignant neoplasm of colon, unspecified; Z66 Do not resuscitate; C50.919 Malignant neoplasm of unspecified site of unspecified female breast; D64.9 Anemia, unspecified; E11.51 Type 2 diabetes mellitus with diabetic peripheral angiopathy without gangrene; I27.20 Pulmonary hypertension, unspecified; J44.9 Chronic obstructive pulmonary disease, unspecified; M10.9 Gout, unspecified; K21.9 Gastro-esophageal reflux disease without esophagitis; Z72.0 Tobacco use; Z71.6 Tobacco abuse counseling; Z82.49 Family history of ischemic heart disease and other diseases of the circulatory system; Z83.3 Family history of diabetes mellitus; Z85.038 Personal history of other malignant neoplasm of large intestine; Z90.13 Acquired absence of bilateral breasts and nipples; Z90.49 Acquired absence of other specified parts of digestive tract; Z95.0 Presence of cardiac pacemaker; Z72.89 Other problems related to lifestyle; I50.33 Acute on chronic diastolic (congestive) heart failure
CPT/HCPCS: 36415; 71045; 71275; 78452; 80048; 82040; 83880; 84484; 85025; 85379; 85610; 85730; 86850; 86900; 93005; 93017; 93306; G0378; J1940; Q9967; A9502; C9898; J1200; J2930

== ENCOUNTER → 2020-05-12 | Outpatient (CLI) | payer MEDICARE, MEDICAID ==
[~2020-05-12] MED LIST changes: +CARV3.1212 PO; -LISI40TA PO; +LISI40TA9 PO; -OXYC5TAB3 PO; +OXYC5TAB98 PO; +Probiotic PO; +Turmeric PO; +VINEGAR
[2020-05-12 12:45] LABS: ALBUMIN 4.2 g/dL (3.4-5.0); CALCIUM 9.1 mg/dL (8.5-10.1); CHLORIDE 107 mmol/L (98-107)
[2020-05-12 12:51] LABS: ALANINE AMINOTRANSFERASE 32 U/L (12-78); ALKALINE PHOSPHATASE 109 U/L (45-117); ANION GAP 9 mmol/L (5-15); BILIRUBIN,TOTAL 0.5 mg/dL (0.2-1.0); CREATININE 1.03 mg/dL (0.55-1.02); TOTAL PROTEIN 7.6 g/dL (6.4-8.2)
== END | disposition home or self-care (01) ==
LOC: STAR 10:25
PROVIDERS: ATTEND Internal Medicine
DX: Z01.812 Encounter for preprocedural laboratory examination (principal); Z20.822 Contact with and (suspected) exposure to COVID-19; D64.9 Anemia, unspecified
CPT/HCPCS: 80053; 87635; 93005

== ENCOUNTER 2020-05-18 13:28 | Day surgery (SDC) | payer MEDICARE, MEDICAID ==
[~2020-05-18] VITALS: Ht 156.2 cm; Wt 78.5 kg
[2020-05-18 14:00] VITALS: BP 99/64
[2020-05-18] MEDS ORDERED: LACTATED RINGERS 1,000 ML IV SCH (14:00)
[2020-05-18] MEDS ORDERED: CHLORHEXIDINE 15 ML UDC MM ONE (14:00)
[2020-05-18] MEDS ORDERED: PROPOFOL 10 MG/ML, 20ML ONE ×2 (15:11→15:12)
== END 2020-05-18 17:15 | disposition home or self-care (01) ==
LOC: OUT 13:28
PROVIDERS: ATTEND Internal Medicine
DX: K55.21 Angiodysplasia of colon with hemorrhage (principal); K64.8 Other hemorrhoids; K63.89 Other specified diseases of intestine; D64.9 Anemia, unspecified; C50.919 Malignant neoplasm of unspecified site of unspecified female breast; C78.00 Secondary malignant neoplasm of unspecified lung; I50.9 Heart failure, unspecified; J44.9 Chronic obstructive pulmonary disease, unspecified; Z79.899 Other long term (current) drug therapy; Z88.8 Allergy status to other drugs, medicaments and biological substances; Z95.0 Presence of cardiac pacemaker
CPT/HCPCS: 44369; 45378; J2704

== ENCOUNTER → 2020-08-14 | Outpatient (CLI) | payer MEDICARE, MEDICAID ==
[~2020-08-14] MED LIST changes: +ASPI81TA45 PO; -CYAN50008 PO; +CYAN50009 PO; +FERR324T23 PO; -FERR325T16 PO
== END | disposition home or self-care (01) ==
LOC: LAB 08:49
PROVIDERS: ATTEND Internal Medicine Hematology & Oncology
DX: C50.919 Malignant neoplasm of unspecified site of unspecified female breast (principal); D50.9 Iron deficiency anemia, unspecified; Z79.899 Other long term (current) drug therapy
CPT/HCPCS: 36415; 82728; 83540; 83550

== ENCOUNTER 2020-09-01 15:55 | Emergency (ER) | payer MEDICARE, MEDICAID ==
[~2020-09-01] VITALS: Ht 154.9 cm; Wt 77.5 kg
[~2020-09-01 15:55] MED LIST changes: -LACT1CAP37 PO; +LACT1CAP47 PO
[2020-09-01 17:58] LABS: BASOPHILS % (AUTO) 1 % (0-1); EOSINOPHILS % (AUTO) 2 % (1-7); LYMPHOCYTES % (AUTO) 15 % (22-44); MEAN CORPUSCULAR HEMOGLOBIN 29.4 pg (27.0-34.8); MEAN CORPUSCULAR HGB CONC 32.4 g/dL (32.4-35.8); MEAN PLATELET VOLUME 8.1 fL (7.4-10.4); MONOCYTES % (AUTO) 13 % (2-9); NEUTROPHILS % (AUTO) 69 % (42-75); PLATELET COUNT 255 x10^3/uL (130-400); RED BLOOD COUNT 3.61 x10^6/uL (3.82-5.3); RED CELL DISTRIBUTION WIDTH 16.7 % (9.6-15.2)
--- NOTE | 2020-09-01 17:58 | NUR ---
orthotics assistant: Pt ambulatory to room from lobby at this time.
[2020-09-01 18:06] LABS: ANION GAP 6 mmol/L (5-15); CALCIUM 8.8 mg/dL (8.5-10.1); CHLORIDE 110 mmol/L (98-107)
[2020-09-01 18:10] LABS: ALANINE AMINOTRANSFERASE 23 U/L (12-78); ALKALINE PHOSPHATASE 92 U/L (45-117); BILIRUBIN,TOTAL 0.4 mg/dL (0.2-1.0); CREATININE 1.01 mg/dL (0.55-1.02); TOTAL PROTEIN 7.6 g/dL (6.4-8.2)
[2020-09-01] MEDS ORDERED: DIPHENHYDRAMINE 50 MG/ML, 1ML ONE (18:12)
[2020-09-01] MEDS ORDERED: DIPHENHYDRAMINE 50 MG/ML, 1ML IVPush ONE (18:30)
[2020-09-01] MEDS ORDERED: OMNIPAQUE 350 MG/ML, 100ML BOTTLE ONE (18:47)
[2020-09-01 19:50] VITALS: BP 135/74
[2020-09-01 20:28] LABS: MICROSCOPIC AUTO
--- NOTE | 2020-09-01 20:52 | NUR ---
ERP TO BEDSIDE FOR RECHECK
--- NOTE | 2020-09-01 20:59 | NUR ---
REPORT TO KERRIE ESPINOSA
--- NOTE | 2020-09-01 21:05 | NUR ---
Patient/Caregiver given discharge instructions and they have confirmed that they understand the instructions. Patient ambulatory with steady gait. NAD, all questions answered appropriately, denies additional needs at this time. No personal belongings left in room after discharge.
[2020-09-01] MEDS ORDERED: PHENAZOPYRIDINE 200 MG TABLET ONE (21:09)
[2020-09-01] MEDS ORDERED: CEFDINIR 300 MG CAPSULE ONE (21:09)
[2020-09-01] MEDS ORDERED: PHENAZOPYRIDINE 200 MG TABLET PO ONE (21:30)
[2020-09-01] MEDS ORDERED: CEFDINIR 300 MG CAPSULE PO ONE (21:30)
== END 2020-09-01 21:16 | disposition home or self-care (01) ==
LOC: ED 21:14
DX: N30.00 Acute cystitis without hematuria (principal); R10.11 Right upper quadrant pain; D53.9 Nutritional anemia, unspecified; I10 Essential (primary) hypertension; E11.9 Type 2 diabetes mellitus without complications; K21.9 Gastro-esophageal reflux disease without esophagitis; J44.9 Chronic obstructive pulmonary disease, unspecified
CPT/HCPCS: 36415; 74177; 76700; 80053; 81001; 83690; 85025; 87086; 96374; 99285; J1200; Q9967

== ENCOUNTER → 2020-09-11 | Day surgery (SDC) | payer MEDICARE, MEDICAID ==
[~2020-09-11] VITALS: Ht 156.2 cm; Wt 77.3 kg
[~2020-09-11] MED LIST changes: +CLOP75TA52 PO; +PROPOFOL 10 MG/ML, 20ML ONE; +SODIUM CHLORIDE 0.9% 1,000 ML IV ONE
[2020-09-11 06:41] VITALS: BP 119/50
== END | disposition home or self-care (01) ==
LOC: CACL 06:01
PROVIDERS: ATTEND Internal Medicine Cardiovascular Disease
DX: I48.0 Paroxysmal atrial fibrillation (principal); I48.92 Unspecified atrial flutter; I34.0 Nonrheumatic mitral (valve) insufficiency; I11.0 Hypertensive heart disease with heart failure; I50.32 Chronic diastolic (congestive) heart failure; I47.1 Supraventricular tachycardia; Z20.822 Contact with and (suspected) exposure to COVID-19; Z79.01 Long term (current) use of anticoagulants; Z79.899 Other long term (current) drug therapy; Z87.891 Personal history of nicotine dependence; Z88.8 Allergy status to other drugs, medicaments and biological substances; Z95.0 Presence of cardiac pacemaker
CPT/HCPCS: 87635; 93312; 93321; 93325; J2704

== ENCOUNTER 2020-09-19 09:41 | Emergency (ER) | payer MEDICARE, MEDICAID ==
[~2020-09-19] VITALS: Ht 157.5 cm; Wt 79.3 kg
[~2020-09-19 09:41] MED LIST changes: -PROPOFOL 10 MG/ML, 20ML ONE; -SODIUM CHLORIDE 0.9% 1,000 ML IV ONE
--- NOTE | 2020-09-19 10:15 | NUR ---
district manager: Pt ambulatory to room from lobby at this time.
[2020-09-19] MEDS ORDERED: SODIUM CHLORIDE FLUSH 10ML SYR IVF ONE (11:00)
--- NOTE | 2020-09-19 11:00 | NUR ---
PT AMBULATED TO BATHROOM W FAMILY. STEADY GAIT.
[2020-09-19 11:18] LABS: ALBUMIN 3.7 g/dL (3.4-5.0); ANION GAP 6 mmol/L (5-15); CALCIUM 8.7 mg/dL (8.5-10.1); CHLORIDE 112 mmol/L (98-107); CREATININE 0.93 mg/dL (0.55-1.02)
[2020-09-19 11:20] LABS: BASOPHILS % (AUTO) 1 % (0-1); EOSINOPHILS % (AUTO) 1 % (1-7); LYMPHOCYTES % (AUTO) 14 % (22-44); MEAN CORPUSCULAR HEMOGLOBIN 30.3 pg (27.0-34.8); MEAN CORPUSCULAR HGB CONC 32.5 g/dL (32.4-35.8); MEAN PLATELET VOLUME 7.8 fL (7.4-10.4); MONOCYTES % (AUTO) 10 % (2-9); NEUTROPHILS % (AUTO) 73 % (42-75); PLATELET COUNT 283 x10^3/uL (130-400); RED BLOOD COUNT 2.93 x10^6/uL (3.82-5.3); RED CELL DISTRIBUTION WIDTH 18.8 % (9.6-15.2)
[2020-09-19] MEDS ORDERED: DIPHENHYDRAMINE 50 MG/ML, 1ML ONE (12:23)
[2020-09-19 12:26] VITALS: BP 113/51
--- NOTE | 2020-09-19 12:27 | NUR ---
PRE MEDICATED FOR CTA Cristobal MENEZES, PT STATES SHE TURNS RED AND SHAKES
[2020-09-19] MEDS ORDERED: DIPHENHYDRAMINE 50 MG/ML, 1ML IVPush ONE (12:30)
--- NOTE | 2020-09-19 12:38 | NUR ---
PT TO CTA.
[2020-09-19] MEDS ORDERED: OMNIPAQUE 350 MG/ML, 75ML BOTTLE ONE (12:45)
--- NOTE | 2020-09-19 13:15 | NUR ---
PT RESTING, DENIES CP. VSS. AMBULATED TO BATHROOM.
--- NOTE | 2020-09-19 13:43 | NUR ---
Patient/Caregiver given discharge instructions and they have confirmed that they understand the instructions. Patient ambulatory with steady gait.
== END 2020-09-19 13:45 | disposition home or self-care (01) ==
LOC: ED 11:36
DX: R07.89 Other chest pain (principal); R10.11 Right upper quadrant pain; I10 Essential (primary) hypertension; K21.9 Gastro-esophageal reflux disease without esophagitis; E11.9 Type 2 diabetes mellitus without complications; J44.9 Chronic obstructive pulmonary disease, unspecified; Z95.0 Presence of cardiac pacemaker; Z85.3 Personal history of malignant neoplasm of breast
CPT/HCPCS: 36415; 71275; 80048; 82040; 85025; 85379; 96374; 99285; J1200; Q9967; 96372

== ENCOUNTER → 2020-10-01 | Outpatient (CLI) | payer MEDICARE, MEDICAID | END | disposition home or self-care (01) | LOC: CFH 08:13 | DX: Z13.820 Encounter for screening for osteoporosis (principal); M85.88 Other specified disorders of bone density and structure, other site; N95.9 Unspecified menopausal and perimenopausal disorder | CPT/HCPCS: 77080 ==